=== PATIENT | female | born 1955 | race Caucasian/White ===

== ENCOUNTER → 2021-02-05 11:47 | Outpatient (CLI) | payer OTHER, SELFPAY ==
--- NOTE | ~2021-02-05 | US_ITS ---
EXAMINATION: US soft tissue head and neck EXAM DATE: 02/05/2021 12:04 INDICATION: Lymphadenopathy of neck and head . TECHNIQUE: Multiple grayscale and Doppler images of the symptomatic submandibular region were obtaine d (by a technologist who performed the scan) and subsequently reviewed. There is no prior study for comparison. FINDINGS: Just superficial to the floor of mouth musculature there is small focal region with echogenic center consistent with lymph node measuring 1.0 x 0.4 x 0.6 cm. This is considered within normal size limits , probably reactive. IMPRESSION: Small submental lymph node probably reactive. Clinical follow-up recommended. If this enl arges or other evidence of lymphadenopathy develops consider follow-up exam or CT. Reviewed, dictated and finalized at location B. IMPRESSION: Small submental lymph node probably reactive. Clinical follow-up re commended. If this enlarges or other evidence of lymphadenopathy develops consi yomaira follow-up exam or CT.
== END ==
PROVIDERS: PCP Student in an Organized Health Care Education/Training Program; Visit Provider Student in an Organized Health Care Education/Training Program
DX: R59.1 Generalized enlarged lymph nodes (principal)
CPT/HCPCS: 76536

== ENCOUNTER → 2021-03-13 12:39 | Outpatient (CLI) | payer OTHER, SELFPAY ==
--- NOTE | ~2021-03-13 | CT_ITS ---
EXAMINATION: CT soft tissue neck wo/w con EXAM DATE: 03/13/2021 13:13 INDICATION: Lymphadenopathy of head and neck. Feels lump below chin. TECHNIQUE: Spiral CT of the neck was performed without and then with intravenous injection of 75 mL O mnipaque 350. Axial, coronal and sagittal images were reviewed. The dose-length product (DLP) for t his examination was 623.46 mGy-cm. The exposure was tailored according to patient size (auto mA expo sure control), and iterative reconstruction (ASIR) was used as additional dose reduction technique. C orrelation is made to neck ultrasound 02/05/2021. FINDINGS: No sialolithiasis on the precontrast scan. There is a small sublingual lymph nodes just rig ht of midline measuring 5 x 7 x 4 mm, well within normal size limits, likely reactive. This could be the lymph node reported on ultrasound last month. There are no pathologically enlarged cervical or thomas praclavicular lymph nodes. The thyroid gland is unremarkable. The submandibular and parotid glands are symmetric. The superi or mediastinum is unremarkable. The airway is unremarkable. Parapharyngeal and pre-glottic fat pl anes are preserved. The opacified vasculature is patent. The orbits are unremarkable. Visualize d sinuses and mastoid air cells are well aerated. Lung apices are clear. Severe cervical disc dise ase C5-6 and 6-7, moderate at C3-4. There is 3 mm anterolisthesis C4 on C5. Severe right facet arthro marina at C4-5, less at other levels. IMPRESSION: Cervical spondylosis. No lymphadenopathy or other suspicious findings. Reviewed, dictated and finalized at location A. IMPRESSION: Cervical spondylosis. No lymphadenopathy or other suspicious findin gs.
[2021-03-13 12:58] LABS: Estimated Glomerular Filt Rate > 60
== END ==
PROVIDERS: PCP Student in an Organized Health Care Education/Training Program; Visit Provider Student in an Organized Health Care Education/Training Program
DX: R59.1 Generalized enlarged lymph nodes (principal); M47.892 Other spondylosis, cervical region
CPT/HCPCS: 70492; Q9967

== ENCOUNTER → 2021-04-20 09:13 | Outpatient (CLI) | payer OTHER, SELFPAY ==
--- NOTE | ~2021-04-20 | MMUS_ITS ---
EXAMINATION: MM diagnostic christin BI w lia, US breast BI limited HISTORY: Pain in the upper outer left breast and lower right breast TECHNIQUE: Craniocaudal, mediolateral, and mediolateral oblique 3-D tomosynthesis images of the brecaleb ts were performed and synthetic 2-D images were generated. CAD analysis was submitted and interpreted . High resolution limited bilateral breast ultrasound was performed. COMPARISON: 09/25/2018, 09/22/2017, 06/18/2016 BREAST PARENCHYMAL COMPOSITION: The breasts are heterogeneously dense, which may obscure small masses . FINDINGS: MAMMOGRAPHIC FINDINGS: There is no evidence of suspicious mass, calcification, or architectural distortion in either breast to suggest malignancy. There has been no suspicious interval change. No mammographic correlate is momo ntified for the reported pain in either breast ULTRASOUND: No suspicious cystic or solid mass is identified to account for the patient's breast pain. There is a 3 mm cyst at the 4:00 location 1 cm from the nipple in the left breast. IMPRESSION: 1. No specific mammographic or sonographic correlate is identified for the patient's breast pain. Fur ther evaluation at this time should be based on clinical assessment. Continued follow-up physical exa mination is recommended. 2. Recommend routine screening mammography in one year. BI-RADS Category 2: Benign finding(s). Reviewed, dictated and finalized at location A. IMPRESSION: 1. No specific mammographic or sonographic correlate is identified for the judie ent's breast pain. Further evaluation at this time should be based on clinical assessment. Continued follow-up physical examination is recommended. 2. Recommend routine screening mammography in one year. BI-RADS Category 2: Benign finding(s).
== END ==
PROVIDERS: PCP Student in an Organized Health Care Education/Training Program; Visit Provider Nurse Practitioner
DX: N64.4 Mastodynia (principal)
CPT/HCPCS: 76642; 77062; 77066; G0279